=== PATIENT | male | born 1960 | race Caucasian/White ===

== ENCOUNTER 2024-01-10 10:15 | Outpatient (CLI) | payer OTHER, SELFPAY ==
--- NOTE | 2024-01-10 09:00 | DI.RAD_ITS ---
Exam(s) XR HIP RT COMPLETE AP PELVIS EXAM: XR HIP RT COMPLETE AP PELVIS CLINICAL HISTORY: RIGHT HIP OA. TECHNIQUE: 2D digital imaging was performed. COMPARISON: Prior outside right hip images of 06/20/2022 FINDINGS: Two views No evidence of pelvic nor hip fracture. Again noted are moderate osteoarthritic degenerative changes, slightly more prominent in the right hi p. On the lateral view there is lack of normal concavity at the anterior femoral head-neck junction which may imply an element of chronic cam-type ROLY. Tiny femoral head osteophyte. No osseous lesion s. Bone density normal. IMPRESSION: Moderate degenerative changes in the right hip. On the lateral view there appears to be slight progr ession when compared to outside images of June 2022. DATA REPOSITORY: RADIATION DOSE DELIVERED:
== END 2024-01-10 10:16 | disposition home or self-care (01) ==
LOC: DIORS 10:16
PROVIDERS: PCP Internal Medicine; Referring Provider Internal Medicine; Visit Provider Physician Assistant
DX: M16.11 Unilateral primary osteoarthritis, right hip (principal); E11.65 Type 2 diabetes mellitus with hyperglycemia
CPT/HCPCS: 99203; 73502

== ENCOUNTER 2024-03-19 03:31 | Outpatient (CLI) | payer MEDICARE, OTHER, SELFPAY ==
[2024-03-19 10:14] LABS: HCT 44.1 % (40.0-50.0); HGB 14.5 g/dL (13.5-17.5); MCH 28.1 pg (27.0-33.0); MCHC 32.9 % (32.0-36.0); MCV 86 fL (80-95); MPV 10.8 fL (8.0-11.0); Platelet Count 306 10^3/uL (130-400); RBC 5.16 10^6/uL (4.36-5.78); RDW 13.2 % (11.8-14.1); RDW-SD 40.9 fL; WBC 7.82 10^3/uL (4.4-10.8)
[2024-03-19 10:47] LABS: Anion Gap 11.8 mmol/L (3-11); BUN 31 mg/dL (7-18); CO2 24.2 mmol/L (21.0-32.0); CREATININE 1.4 mg/dL (0.70-1.30); Calcium 9.2 mg/dL (8.5-10.1); Chloride 105 mmol/L (98-107); Estimated GFR 56.13 (mL/min/1.73m2); Glucose 123 mg/dL (74-106); Potassium 5.7 mmol/L (3.5-5.1); Sodium 141 mmol/L (136-145)
[2024-03-21 12:56] LABS: Fructosamine 249 mcmol/L (200 - 285)
== END 2024-03-19 03:32 | disposition home or self-care (01) ==
LOC: LBO 03:31
PROVIDERS: PCP Internal Medicine; Visit Provider Student in an Organized Health Care Education/Training Program
DX: M16.11 Unilateral primary osteoarthritis, right hip (principal); E11.9 Type 2 diabetes mellitus without complications; Z01.818 Encounter for other preprocedural examination
CPT/HCPCS: 36415; 80048; 85027; 99024; 82985

== ENCOUNTER 2024-03-31 05:53 | Day surgery (SDC) | payer MEDICARE, OTHER, SELFPAY ==
[2024-03-31] VITALS (26 sets, daily range): BP systolic 83–145; BP diastolic 48–84; PULSE 63–85; RESP 13–26; TEMP 36.2–37.1; O2SAT 92–96; BMI 32.1
[2024-03-31] MEDS: Acetaminophen 500 MG TAB 1000 MG PO (06:38)
[2024-03-31] MEDS: Celecoxib 200 MG CAP 400 MG PO (06:38)
--- NOTE | 2024-03-31 07:00 | DI.RAD_ITS ---
Exam(s) XR HIP RT IN OR EXAM: XR HIP RT IN OR CLINICAL HISTORY: OSTEOARTHRITIS RIGHT HIP. TECHNIQUE: 2D and realtime digital imaging was performed. COMPARISON: CR XR HIP RT COMPLETE AP PELVIS from 01/10/2024 FINDINGS: Hard copy images show placement of a right hip prosthesis. The alignment appears satisfactory. Please see procedure note for details. Fluoro time: 29.7seconds RADIATION DOSE DELIVERED: Ka,r=3.75 mGy
--- NOTE | 2024-03-31 07:07 | W.ANESPRE ---
General Info Date of Service Date Performed: 03/31/24 Height: 5 ft 2 in Weight: 79.7 kg Body Mass Index (BMI): 32.1 Surgical Procedure: Operation Date: 03/31/24 07:50 Proposed Procedure Side Surgeon p Hip Total Hip Anterior, ACTIS Right Martin Salvador MD Meds Allergies and Home Medications Allergies Allergy/AdvReac Type Severity Reaction Status Date / Time No Known Allergies Allergy Verified 03/31/24 06:18 Home Medication ?Medication ?Instructions ?Recorded amlodipine 5 mg tablet 5 mg PO DAILY 12/24/23 aspirin 81 mg tablet,delayed 81 mg PO DAILY 12/24/23 release atorvastatin 80 mg tablet 80 mg PO DAILY 12/24/23 empagliflozin 10 mg tablet 10 mg PO DAILY 12/24/23 (Jardiance) ezetimibe 10 mg tablet 10 mg PO DAILY 12/24/23 lisinopril 5 mg tablet 5 mg PO DAILY 12/24/23 metformin 1,000 mg tablet 1,000 mg PO BID 12/24/23 ropinirole 0.25 mg tablet 0.25 mg PO DAILY 12/24/23 semaglutide 2 mg/dose (8 mg/3 mL) 2 mg subcut QWEEK 12/24/23 subcutaneous pen injector (Ozempic) sildenafil 50 mg tablet 50 mg PO DAILY PRN 12/24/23 celecoxib 200 mg capsule (Celebrex) 200 mg PO DAILY 30 days #30 caps 01/10/24 gemfibrozil 600 mg tablet 600 mg PO BID 01/10/24 glipizide 5 mg tablet 5 mg PO DAILY 01/10/24 pantoprazole 40 mg tablet,delayed 40 mg PO DAILY 01/10/24 release Current Visit Medications: Current Medications Generic Name Dose Route Start Last Admin Trade Name Husseinq PRN Reason Stop Dose Admin Acetaminophen 1,000 mg 03/31/24 06:00 03/31/24 06:38 Acetaminophen 500 Mg Tab PO 03/31/24 23:59 1,000 mg PREOP MARK Administration Celecoxib 400 mg 03/31/24 06:00 03/31/24 06:38 Celecoxib 200 Mg Cap PO 03/31/24 23:59 400 mg PREOP MARK Administration Gabapentin 300 mg 03/31/24 06:00 Gabapentin 300 Mg Cap PO 03/31/24 23:59 PREOP MARK Sodium Chloride 1,000 mls @ 30 mls/hr 03/31/24 06:00 Saline 1000ml Bag IV 04/30/24 05:59 INFUSION MARK Ringer's Solution 1,000 mls @ 80 mls/hr 03/31/24 06:00 IV 03/31/24 23:59 INFUSION MARK Cefazolin Sodium/Dextrose 2 gm in 50 mls @ 100 mls/hr 03/31/24 06:00 Ancef Duplex IVPB 03/31/24 23:59 PREOP MARK Tranexamic Acid 1,000 mg/ 100 mls @ 600 mls/hr 03/31/24 06:00 Sodium Chloride IVPB 03/31/24 23:59 PREOP MARK IV Miscellaneous Supplies 1 each 03/31/24 06:00 Iv Access IV 03/31/24 23:59 DIRECTED MARK Sodium Chloride 0 ml 03/31/24 06:00 Normal Saline Flush 10 Ml Syr IV 03/31/24 23:59 PRN PRN Sodium Chloride 0 ml 03/31/24 06:00 Normal Saline 10 Ml Vial IJ 03/31/24 23:59 DIRECTED PRN Sterile Water 0 ml 03/31/24 06:00 Water,Injection,Sterile 10 Ml Vial IJ 03/31/24 23:59 DIRECTED PRN PFSH Active Problems Active Problems: Problem Status Onset Code Femoral acetabular impingement Chronic M25.859 Osteoarthritis of right hip Acute M16.11 Type 2 diabetes mellitus Acute E11.9 ANA (obstructive sleep apnea) Chronic G47.33 Diabetic neuropathy Acute E11.40 Medical History Medical History Hypertensive disease Hyperlipidemia GERD (gastroesophageal reflux disease) Erectile dysfunction Surgical History Surgical History History of open reduction and internal fixation (ORIF) procedure L forearm Hx of colonoscopy Tobacco Smoking/Tobacco Use Status: Former Tobacco Use Alcohol Alcohol Intake: never Substance Use Substance use: Never Substance use type: does not use Vital Signs and Lab Results Vital Signs Most Recent Vital Signs in EMR: Most Recent Vital Signs Temp Pulse Resp BP Pulse Ox 37.1 C 80 16 145/84 H 96 03/31/24 06:28 03/31/24 06:28 03/31/24 06:28 03/31/24 06:28 03/31/24 06:28 Lab Results Blood Type / Crossmatch: No Data to Display Complete Blood Count: White Blood Count 7.82 10^3/uL (4.4-10.8) 03/19/24 09:50 Red Blood Count 5.16 10^6/uL (4.36-5.78) 03/19/24 09:50 Hemoglobin 14.5 g/dL (13.5-17.5) 03/19/24 09:50 Hematocrit 44.1 % (40.0-50.0) 03/19/24 09:50 Platelet Count 306 10^3/uL (130-400) 03/19/24 09:50 Complete Metabolic Panel: Sodium 141 mmol/L (136-145) 03/19/24 09:50 Potassium 5.7 mmol/L (3.5-5.1) H 03/19/24 09:50 Chloride 105 mmol/L (98-107) 03/19/24 09:50 Carbon Dioxide 24.2 mmol/L (21.0-32.0) 03/19/24 09:50 BUN 31 mg/dL (7-18) H 03/19/24 09:50 Creatinine 1.4 mg/dL (0.70-1.30) H 03/19/24 09:50 Est GFR (CKD-EPI 2020) 56.13 (mL/min/1.73m2) 03/19/24 09:50 Calcium 9.2 mg/dL (8.5-10.1) 03/19/24 09:50 Glucose 123 mg/dL (74-106) H 03/19/24 09:50 Liver Function Panel: No Data to Display Coagulation Panel: No Data to Display Cardiac Panel: No Data to Display Arterial Blood Gas: No Data to Display Venous Blood Gas: No Data to Display Pancreas Panel: No Data to Display Thyroid Panel: No Data to Display Infectious Disease: No Data to Display Blood Cultures: No Data to Display Toxicology Panel: No Data to Display Anesthesia Assessment and Plan Anesthesia History Personal History: No History of Anesthesia Complications Family History: No Family History of Anesthesia Complications Exercise Tolerance Exercise Tolerance: Metabolic Equivalents>4 Pertinent Negatives Pertinent Negatives: No Symptoms of GERD Cardiac & Pulmonary Exam Cardiac Exam: Normal S1/S2 Heart Sounds Pulmonary Exam: Clear Bilateral Breath Sounds Implantable Cardiac Device Does patient have a Pacemaker or an ICD?: No Airway Exam Known Difficult Airway: No Mallampati Class: 1 Mouth Opening: Normal (> 3cm) Thyromental Distance: Greater than 3 cm Neck Range of Motion: Full ROM Neck Circumference: Normal Teeth Condition: Normal Dentition ASA Classification ASA Score: ASA 2 Emergency Case?: No NPO Status NPO Status: NPO Clears >2 hours, Solids >8 hours Anesthesia Plan Resuscitation Status: Full Code Anesthesia Technique: Spinal Anesthesia Airway Planned: Natural Airway Monitors Used: Standard Monitors
--- NOTE | 2024-03-31 07:24 | PDOC.DSDIS_ITS ---
Date of service: 03/31/24 Time of Service: 07:32 Discharge Plan Disposition Patient Disposition: Home Condition: Good Discharge Details Reason For Visit: Right hip DJD Attending Provider: Martin Salvador Primary Care Provider[facility] Med[facility] and New Rx's Prescriptions: New celecoxib [Celebrex] 200 mg capsule 200 mg PO BID PRNQty: 60 0RF Rx Instructions: Take one tablet twice daily for pain and inflammation aspirin 81 mg tablet,delayed release (DR/EC) 81 mg PO BID 30 Days Qty: 60 0RF acetaminophen 500 mg tablet 1,000 mg PO Q8H PRN Qty: 90 0RF Rx Instructions: Take two tablets up to every 8 hours as needed for pain docusate sodium [Colace] 100 mg capsule 100 mg PO BID Qty: 30 0RF oxycodone 5 mg tablet 5 mg PO Q6H PRNQty: 12 0RF Rx Instructions: Take one tablet up to every 6 hours as needed for severe postoperative pain Continued amlodipine 5 mg tablet 5 mg PO DAILY atorvastatin 80 mg tablet 80 mg PO DAILY ezetimibe 10 mg tablet 10 mg PO DAILY Jardiance 10 mg tablet 10 mg PO DAILY lisinopril 5 mg tablet 5 mg PO DAILY metformin 1,000 mg tablet 1,000 mg PO BID Ozempic 2 mg/dose (8 mg/3 mL) pen injector 2 mg subcut QWEEK ropinirole 0.25 mg tablet 0.25 mg PO DAILY sildenafil 50 mg tablet 50 mg PO DAILY PRN Rx Instructions: administer 30 minutes to 4 hours before activity glipizide 5 mg tablet 5 mg PO DAILY gemfibrozil 600 mg tablet 600 mg PO BID pantoprazole 40 mg tablet,delayed release (DR/EC) 40 mg PO DAILY Discontinued aspirin 81 mg tablet,delayed release (DR/EC) 81 mg PO DAILY celecoxib [Celebrex] 200 mg capsule 200 mg PO DAILY 30 Days Qty: 30 1RF Discharge Instructions Additional Instructions: Total Hip Discharge Instructions Activity: The most important activity is to walk. You should try to take short walks a few times a day. You have no restrictions on movement or positioning, but do not try to force what you do. You will find some stiffness and weakness with hip flexion (lifting your knee). Do not try to strengthen this too early, continue to practice walking and stairs and this will come. - Outpatient physical therapy can be helpful to help return you to a normal gait and improve your flexibility and strength. This can start around 2 weeks. For some patients, it?s not necessary. Usually this is determined at the time of discharge or at the first post-operative visit. - You should wear the LATASHA hose on both legs for 2 weeks. Dressing: Keep the surgical dressing in place for at least one week. After the first week it may be removed and replace with light gauze and tape or nothing. It may get wet after 3 days but avoid soaking the dressing. If it gets wet, just lightly pat dry. It is important to always keep some gauze between skin folds, especially when you are sitting. Spend some time with the wound exposed when you are lying flat as the incision does wrinkle onto itself. Medications: - You should take Tylenol and an anti-inflammatory Celebrex as your primary pain control medications. If the Celebrex is too expensive or not covered, please call the office for another alternative (Advil/Ibuprofen or Naproxen/Aleve). - You have been prescribed a stronger pain medication Oxycodone for breakthrough pain, take as needed as prescribed. - You take a stomach acid reduction agent Pantoprozole at baseline - continue with this medication to help reduce stomach acid and reflux. - You will be taking Aspirin 81mg twice a day for DVT prevention unless instructed otherwise. - If you have constipation you should take Colace (which has been prescribed) or Miralax (which is available [id number]). It takes most people 3-4 days to have a bowel movement. Follow-up: 2 weeks If you have any acute concerns or questions, please do not hesitate to contact the office at [phone]. You may contact Dr. Salvador with any questions after hours through the hospital at [phone] or on his cell phone at [phone]. Referrals: Martin Salvador MD [ [facility] STAFF PHYSICIAN] - Equipment/Supplies: Walker Activity:: Elevate Remove Dressings/Wound Care:: Do Not Remove Shower/Bathe:: Cover Diet:: As Tolerated Discharge Orders Discharge Orders: Discharge Order (Routine); Ordered 03/31/24 Ordered By: Gina Rooney
[2024-03-31] MEDS: Normal Saline 1,000 ML 30 ML IV (07:25)
[2024-03-31] MEDS: ceFAZolin 2 GM/50 ML BAG IVPB (07:53)
--- NOTE | 2024-03-31 09:08 | ROE_ITS ---
Operative Note Operative Note PRE-OP DIAGNOSIS: RIGHT Hip Osteoarthritis POST-OP DIAGNOSIS: same PROCEDURE: Right Anterior Total Hip Arthroplasty with Intraoperative Navigation SURGEON: Martin Salvador STEAM HAND: Gina Rooney ANESTHESIA TYPE: Spinal Refer to Anesthesia Record ESTIMATED BLOOD LOSS: 100 PATHOLOGY: none sent TOURNIQUET TIME: 0 COMPLICATIONS: None Patient was transported to: PACU Patient's condition: stable Implants: 1. Depuy [place] Acetabular Component, 52mm 2. Depuy Acetabular Liner, [id number] 3. Depuy Actis Standard Collared Femoral Stem, Size 6 4. Depuy Altrx Ceramic Femoral Head, Size 36+5mm Indications: I have seen Omar in clinic for symptoms of hip arthritis, confirmed with radiographic findings. He has exhausted nonoperative methods and was having significant limitations in daily function and desired better function and less pain. I discussed the technical details of a hip replacement. I explained the risks of the procedure to include, but not limited to, bleeding, infection, pain, stiffness, fracture, damage to nerves and vessels, damage to muscles and tendons, loosening, instability, leg length inequality, need for repeat procedure, blood clot and cardiopulmonary demise. Despite these risks, Omar elected to proceed. Findings: There was significant signs of arthritis throughout the hip. Procedure Description: Omar was greeted in the preoperative holding area where the correct side was identified and marked. The consent was reviewed with the patient and signed. The history and physical was updated. All questions were answered. He was taken back to the operating room. A general anesthestic was then administered. The feet were wrapped with cast padding and Coban and then placed into the boot liners and then into the boots. Care was taken to protect the s kin and make sure the heels were fully down and the boots were stable. The patient was then positioned onto the HANA table. Both legs were held in a neutral position. SCDs were applied. The patient was then slid down onto a peroneal post. Prophylactic antibiotics in the form of Cefazolin were administered. 1g of Tranxemic Acid was given intravenously within 30 minutes of incision. The right leg was then prepped with Chloraprep and draped in a standard fashion. A second prep with Chloraprep was performed prior to placement of a shower-curtain type drape with Iodine impregnated skin pr otection. A timeout to confirm correct identity, side and site, procedure, allergies, anesthesia, and medical concerns was performed. An obliquely oriented incision was made starting lateral to the ASIS and running distal over the Tensor Fascia [place] (TFL) muscle belly toward the fibular head, approximately 10cm. The skin and soft tissue was dissected sharply, through Dereck?s fascia, and to the fascia of the TFL. With the fascia and superior border of the IT band identified, the fascia was incised with a new knife just above any perforators from the IT band. The TFL muscle belly was bluntly dissected away from the fascia and moved laterally. The fat between TFL and rectus was identified to ensure the dissection was not within the TFL. Blunt dissection created space between abductors and the capsule and retractor was placed over the lateral femoral neck. The fibers of the rectus femoris tendon were identified and these were freed from the anterior capsule. A second cobra retractor was placed around the medial femoral neck. The TFL was further retracted laterally to show the deep fascia. Careful dissection through this layer identified three main crossing vessels of the lateral femoral circumflex. These were cauterized in multiple locations and then cut without any noticeable bleeding. The TFL was further released bluntly from the deep fascia to expose anterior hip capsule and fat The soft tissue orthopaedic retractor was then placed beneath the TFL and against sartorius and medial soft tissues to protect and retract the soft tissues. A T-capsulotomy was then performed starting at the superior lateral acetabulum and moving distally to the intertrochanteric ridge. These capsular flaps were tagged with a No. 1 Ethibond and elevated from within. The capsular flaps were released to the shoulder of the lateral neck and to the lesser trochanter to give excellent visualization of the proximal femur. A neck osteotomy was performed using an oscillating saw based on preoperative templates. This cut started in the shoulder and of the lateral neck and exited medially. The saw was at all times directed medially to avoid injury to the greater trochanter. Gross traction was applied to the leg and the osteotomy opened. The femoral head was removed with a corkscrew, making sure to protect the TFL on its exit. Traction was released after head removal. This was measured on the back table to determine the starting reamer size. Portions of the rectus obscuring visualization were minimally elevated off the superior acetabulum. An anterior retractor was placed over the anterior wall between capsule and labrum and attached to the Gripper retraction system. The femur was rotated to 90 degrees and medial capsule was fully released until the lesser t rochanter was palpable and visible; the femur was returned to 30 degrees. A posterior retractor was placed similarly between capsule and labrum. This provided excellent visualization. The contents of the cotyloid fossa were removed with electrocautery and the labrum was removed with a knife. There was a notable floor osteophyte. There was significant chondromalacia of the superior acetabulum. Acetabular reaming began with a 48mm reamer. This first reaming was directed anterior to posterior and medial to get down to the true floor. This was inspected and reamed until the true floor was reached. The anterior retractor was then released and entry and exit was provided by traction on the capsular flaps. I then reamed sequentially up to a 52mm reamer where good fit was obtained. The larger reamers were oriented based on anatomical reference of the anterior and lateral carolina to ensure proper abduction and anteversion. Positioning and size was confirmed with the fluoroscopy. A 52mm Depuy [place] acetabular component was selected. The acetabulum was reamed around the periphery with the selected acetabular size to prevent a rim fit. The deep tissues were irrigated. The acetabular component was then impacted in a position of about 40-45 degrees of abduction and 15-20 degrees of anteversion, using the patient?s anatomy as the ultimate landmark. Fluoroscopy was used to confirm this. There was excellent pouncer of the acetabular component and the inserting handle was removed. The acetabular liner, Depuy [id number] polyethylene liner, was inserted and lined up with the tines of the acetabular component. There was no soft tissue interposition. The liner was then impacted into position and confirmed to be well-seated. A portion of the tracy-articular cocktail was then injected around the acetabulum into the capsule and periosteum. This cocktail consisted of 123mg of Ropivacaine, 0.25mg of Epinephrine, 0.04mg of Clonidine, and 15mg of Ketorolac, diluted to 50cc. The leg was rotated to 120 degrees. Any remaining medial capsule was released until the lesser trochanter was easily palpable. A retractor was placed medially. The lateral capsule was further released into the shoulder to allow access to the greater trochanter. A Moise retractor was placed over the greater trochanter which allowed the trochanter to flip in front of the capsule for excellent exposure. The leg was brought down into maximal extension and 20 degrees of adduction while ensuring there was no impingement on the acetabulum. Any remnant capsule within the trochanter was released. Piriformis and obturator externis were identified and protected. There was excellent access to the proximal femur. The lateral neck remnant was removed with a rongeur. A blunt canal probe was used to identify the canal and trajectory for later broaching. A box osteotome initiated the broach course. A small curved rasp and a curved curette were used to work laterally. Broaching then began with a starter Actis broach. This was inserted manually around the trochanter and into the canal before mallet blows. The broach was seated to a few millimeters below the cut level based on the neck cut and the preoperative template. Sequential broaching was continued with the [employer] pneumatic broaching device until a tight fit was obtained with good rotational control of the femur. A trial standard neck was inserted along with a +1.5 trial head. The leg was brought out of extension and adduction and then reduced with traction and internal rotation. The leg was stable anteriorly in a position of 30 degrees of extension and 90 degrees of external rotation. Fluoroscopy was used to ensure there was no fracture and the stem was seated well. Leg lengths were checked with an AP pelvis and pelvic reference points. [facility] navigation system was used to confirm appropriate positioning and leg length and offset. Advancing the stem 1-2 mm and going to a +5mm head would accurate recreate leg length and offset. Once content with the desired offset and leg lengths, the leg was brought back into extension, external rotation and adduction. The periosteum and surrounding tissue was injected with remaining portion of the tracy-articular cocktail. The proximal femur was irrigated as well as the deep tissues. The [email or web address] standard collared stem, size 6, was then manually inserted into the proximal femur making sure to control rotation. It was then malleted into position with light blows, giving breaks to allow bone expansion and decrease risk of fracture. The selected Depuy Altrx Ceramic Head, size 36+5mm, was then placed onto the clean and dry trunnion and secured with impaction onto the tapered fit. The leg was brought back out of extension and adduction and reduced with traction and internal rotation. Stability was confirmed with no shuck at 90 degrees of external rotation and 30 degrees of extension. No impingement through range of motion arc. Final x-ray images were obtained with fluoroscopy to confirm adequate positioning and no intraoperative fracture. The deep tissues were thoroughly irrigated with Surgiphor, betadine solution. This was allowed to sit in the wound for 3 minutes before being thoroughly irrigated out with normal saline. The capsule was then reapproximated with the previously placed Ethibond sutures. The TFL fascia was finally closed with a No. 2 Stratafix, barbed suture. Deep tissues were then reapproximated with 0 Vicryl and a running 2-0 Vicryl. The skin was closed with a running 4-0 Monocryl in a subcuticular fashion. This was reinforced with skin glue. A Mepilex silver dressing was applied. At the end of the case, all counts were correct. Omar was transferred to the hospital bed without difficulty and suffering no apparent complication. Omar has a good prognosis. Physical therapy will start today and without restrictions, weight-bearing as tolerated. Aspirin 81mg BID will be used for D VT prophylaxis. Date of Procedure: 03/31/24
[2024-03-31] MEDS: ePHEDrine 25 MG/5 ML Syringe IVP (09:15)
[2024-03-31] MEDS: HYDROmorphone 1 MG/ML SYR IVP ×2 (09:34→09:47)
--- NOTE | 2024-03-31 10:31 | W.ANESPOSTOP ---
Postoperative Evaluation Date, Time and Location Date Performed: 03/31/24 Time Performed: 10:31 Patient Location: Day Surgery Unit Vital Signs Most Recent Imported Vital Signs: Most Recent Vital Signs Temp Pulse Resp BP Pulse Ox 36.6 C 67 21 113/60 94 03/31/24 09:55 03/31/24 09:55 03/31/24 09:55 03/31/24 09:55 03/31/24 09:55 Pain Score Most Recent Pain Score: Most Recent Pain Score Pain Level 4 03/31/24 09:54 Assessment Mental Status: Awake (Alert & Oriented to Patient Baseline) Airway and Respiratory Function: Patent airway with normal (patient baseline) respiratory exam Cardiovascular Function: Hemodynamically Stable Hydration Status: Adequately Hydrated Nausea & Vomiting: No Nausea or Vomiting Pain: Pain is tolerable per patient Peripheral Nerve Block: Patient did not receive a nerve block
--- NOTE | 2024-03-31 11:11 | PT.INIE ---
PT Notes Visit Reasons: Right hip DJD Physical Therapy Day Surgery Initial Evaluation Date: 03/31/2024 Referring Doctor: MASOUD Liu PT Orders: PT CONSULT: S/p Ortho Surgery Precautions: WBAT on the right LE with AD. Patient Profile/Admitting Diagnosis: Omar is a 64-year-old male with degenerative joint disease of the right LE and is status post right anterior total hip arthroplasty on postoperative day 0. PMHX: Medical History Hypertensive disease Hyperlipidemia GERD (gastroesophageal reflux disease) Erectile dysfunction Social History/Home Situation: Lives with significant other and in a private home with a ramp to enter. Independent with all aspects of ADLs prior to surgery. Equipment Owned/DME: [facility] Subjective: Denied headache, chest pain, and lightheadedness throughout session. Reported 2/10 pain in the right hip that did not limit mobility performance. Objective: General Observation: Mepilex Ag over surgical incision. TEDS to be legs. Mental Status: A and O x 4 Pain: 2/10 in the R hip area ROM: Right Lower Extremity: Hip flexion WFL. Hip abduction WFL. Knee flexion WFL. Ankle dorsiflexion WFL. Ankle plantarflexion WFL. Left Lower Extremity: Hip flexion WFL. Hip abduction WFL. Knee flexion WFL. Ankle dorsiflexion WFL. Ankle plantarflexion WFL. Strength: Right Lower Extremity: Hip flexors 4/5. Hip abductors 4/5. Knee flexors 5/5. Knee extensors 4/5. Ankle dorsiflexors 5/5. Ankle plantarflexors 5/5. Left Lower Extremity:Hip flexors 5/5. Hip abductors 5/5. Knee flexors 5/5. Knee extensors 5/5. Ankle dorsiflexors 5/5. Ankle plantarflexors 5/5. Sensation: Intact as to pain and light pressure in B LE Bed Mobility/Transfers: Minimal cueing provided for use of B hands as needed for support, movement sequence, AD management, and posture to reduce fall risk and minimize pain report Supine to sit stand by assist Sit to stand stand by assist with FWW Stand to sit stand by assist with FWW Bed to chair stand by assist with FWW Gait: Facilitate safe and correct performance of level surface ambulation covering a distance of 150 feet using front wheeled walker with contact-guard assist with minimal verbal cueing for limb advancement, AD management, and posture. 2 episodes of excessive right knee flexion as if R knee was going to give way but patient was able to self-correct, no LOB. Balance: Static Sitting: Normal Dynamic Sitting: Normal Static Standing: Fair Dynamic Standing: Fair Special Tests: Mobility Limitations Standardized Measure [facility] AM-PAC 6 clicks Basic Mobility Inpatient Short Form: Raw Score: 23 CMS Score: 11% deficit Informed Consent/Education: Patient instructed in purpose of PT consult. Packet containing ALIYA exercise protocol has been given to patient. Education and training on initial set of exercises that can be done at home have been completed with patient. Trained patient with correct performance of exercises below to maximize motor control, joint flexibility, soft tissue extensibility of the R hip musculature to facilitate return to independent functional mobility performance. Access Code: [email or web address] URL: [email or web address] Date: 03/31/2024 Prepared by: Jacque Ackerman Exercises - Gluteal Sets - 1 x daily - 7 x weekly - 1 sets - 10 reps - 5 hold - Supine Heel Slide - 1 x daily - 7 x weekly - 1 sets - 10 reps - 5 hold - Supine Ankle Pumps - 1 x daily - 7 x weekly - 1 sets - 10 reps - 5 hold - Seated March - 1 x daily - 7 x weekly - 1 sets - 10 reps - 5 hold - Seated Long Arc Quad - 1 x daily - 7 x weekly - 1 sets - 10 reps - 5 hold Assessment: 2 episodes of excessive flexion on the R side as if R knee was goign to give way but patient was able to self-correct, No LOB. Patient requires the use of a front wheeled walker for all mobility ADL performance to maximize independence and reduce fall risk. Patient presents with clinical signs and symptoms consistent with current/admitting diagnoses that have resulted to mobility limitations, gait instability, generalized weakness, and impairment of motor control as demonstrated by the following impairment level findings: 1. Decreased strength to right hip major muscle groups 2. Impaired standing balance Impairments are contributing to the following functional limitations: 1. Inability to safely ambulate without assistive device 2. Increase completion time for mobility ADL performance 3. Increased fall risk Patient is assessed as a 15080 moderate complexity based on the following: History: 64-year-old female with impairment level findings, functional limitations, and past medical history as indicated above Examination: Demonstrable impairment in strength, balance, and mobility level with underlying impairments and functional limitations as documented above Presentation: Evolving Decision Makin moderate complexity Goals: N/A. PT evaluation and 1-2 treatment sessions only for functional mobility training using recommended AD and for HEP instruction. Plan of Care/Treatment Plan: N/A. PT evaluation and 1-2 treatment session only for functional mobility training using recommended AD and for HEP instruction. DISCHARGE RECOMMENDATIONS: Home when medically cleared by orthopedic surgeon. Recommend outpatient PT services in order to optimize functional mobility outcomes and facilitate return to independent community ambulation without an assistive device. TREATMENT CODE/TIME: 46585 x 28 minutes for 1 unit (11:11?11: 39). Thank you for the opportunity to participate in the care of this patient. Please sign an return this page within 30 days if you agree with the above POC. Thank you! Physician Signature Date [facility] Jacque Ackerman PT, DPT, CLT [facility] [place], [place]
== END 2024-03-31 12:40 | disposition home or self-care (01) ==
PROVIDERS: PCP Internal Medicine; Visit Provider Student in an Organized Health Care Education/Training Program
PROC: (CPT 27130; principal; 2024-03-31 07:30)
DX: M16.11 Unilateral primary osteoarthritis, right hip (principal); E11.40 Type 2 diabetes mellitus with diabetic neuropathy, unspecified; G47.33 Obstructive sleep apnea (adult) (pediatric); I10 Essential (primary) hypertension; E78.5 Hyperlipidemia, unspecified; K21.9 Gastro-esophageal reflux disease without esophagitis
CPT/HCPCS: 20985; 27130; 97162; 73501; C1776; J0690; J1171; J2003; J2250; J2704

== ENCOUNTER 2024-04-13 15:59 | Outpatient (CLI) | payer MEDICARE, OTHER, SELFPAY ==
--- NOTE | 2024-04-13 09:30 | DI.RAD_ITS ---
Exam(s) XR HIP RT COMPLETE AP PELVIS EXAM: XR HIP RT COMPLETE AP PELVIS CLINICAL HISTORY: 1st post op s/p R ALIYA. TECHNIQUE: 2D digital imaging was performed of the right hip. Two images were obtained. AP pelvis a nd lateral right hip views were obtained. COMPARISON: CR XR HIP RT COMPLETE AP PELVIS from 01/10/2024 XA XR HIP RT IN OR from 03/31/2024 FINDINGS: BONES: No acute fracture is present. No bony destructive lesion is seen. JOINTS: No dislocation present. In the left hip, there are mild degenerative changes present. There also calcifications seen in the soft tissues adjacent to the greater trochanter consistent with calci fic tendinitis. There are stable postsurgical changes of a right total hip arthroplasty. No suspici ous lucencies are seen around the orthopedic hardware. SOFT TISSUE: Vascular calcifications are present. IMPRESSION: Unremarkable right total hip arthroplasty. DATA REPOSITORY: RADIATION DOSE DELIVERED:
== END 2024-04-13 16:00 | disposition home or self-care (01) ==
LOC: DIORS 16:00
PROVIDERS: PCP Internal Medicine; Referring Provider Internal Medicine; Visit Provider Student in an Organized Health Care Education/Training Program
DX: Z96.641 Presence of right artificial hip joint (principal); Z47.1 Aftercare following joint replacement surgery
CPT/HCPCS: 99024; 73502

== ENCOUNTER → 2024-05-11 09:41 | Outpatient (BNVA) | payer MEDICARE, OTHER, SELFPAY | PROVIDERS: PCP Internal Medicine; Referring Provider Internal Medicine; Visit Provider Student in an Organized Health Care Education/Training Program | DX: Z47.1 Aftercare following joint replacement surgery (principal); Z96.641 Presence of right artificial hip joint | CPT/HCPCS: 99024 ==